=== PATIENT | female | born 1975 | race African-American/Black ===

== ENCOUNTER → 2017-12-23 | Outpatient (CLI) | payer OTHER ==
--- NOTE | 2017-12-23 13:17 | US ---
EXAMINATION TYPE: US venous doppler duplex LE DATE OF EXAM: 12/23/2017 12:29 PM COMPARISON: NONE CLINICAL HISTORY: M79.662, Pain in left lower R22.42, Localized swel. Bilateral leg tenderness. No s welling. No hx of blood clot. SIDE PERFORMED: Bilateral TECHNIQUE: The lower extremity deep venous system is examined utilizing real time linear array sonog tamika with graded compression, doppler sonography and color-flow sonography. VESSELS IMAGED: External Iliac Vein (EIV) Common Femoral Vein Deep Femoral Vein Greater Saphenous Vein * Femoral Vein Popliteal Vein Small Saphenous Vein * Proximal Calf Veins (* superficial vessels) Limited exam due to patient body habitus Grayscale, color doppler, spectral doppler imaging performed of the deep veins of the lower extremiti es. There is normal flow, compressibility, vascular waveforms. IMPRESSION: Right Leg: Appears negative for acute DVT Left Leg: Appears negative for acute DVT
== END | disposition home or self-care (01) ==
LOC: RADUSWWP 11:45
PROVIDERS: ATTEND Internal Medicine
DX: M79.662 Pain in left lower leg (principal); M79.661 Pain in right lower leg; R22.43 Localized swelling, mass and lump, lower limb, bilateral
CPT/HCPCS: 93970

== ENCOUNTER → 2018-03-03 | Outpatient (CLI) | payer OTHER ==
--- NOTE | 2018-03-03 20:36 | WWHP ---
[facility] - HISTORY AND PHYSICAL CHIEF COMPLAINT: The patient is here for her routine gynecologic exam. HPI: This is a 42-year-old, G2, P2, with an LMP of 2013. She is status post KEYANNA for benign reasons. The patient is without gynecologic complaints. It has been about 1 year since her last pelvic exam. PAST MEDICAL HISTORY: Hypothyroidism, chronic hypertension, asthma, and gastroesophageal reflux disease. MEDICATIONS: Levothyroxine 50 mcg daily, atorvastatin 20 mg daily, pantoprazole 40 mg 1 daily, sertraline 50 mg 1 daily. Dicyclomine 20 mg 1 tablet q.i.d., montelukast 10 mg 1 daily, gabapentin 100 mg 1 b.i.d., amlodipine 5 mg 1 daily, potassium chloride 10 mEq 1 b.i.d., Trokendi XR 100 mg once daily, spironolactone 25 mg 1 daily, Jet 10/325 one q.i.d. p.r.n., sucralfate 1 g q.i.d., Dulera 100 mcg/5 mcg 1 puff b.i.d., albuterol nebulizer q.i.d. p.r.n., Ventolin inhaler 2 puffs q.6 hours p.r.n. ALLERGIES: To PENICILLIN, CIPRO AND VANCOMYCIN all of which cause rashes. PAST SURGICAL HISTORY: Endometrial ablation 2013, KEYANNA 2013, back surgery 2012, cholecystectomy 2007 and skin abscess debridement. PAST [employer] HISTORY: She had a KEYANNA in 2013 for endometriosis and abnormal bleeding and uterine fibroids. She has no history of STDs. SOCIAL HISTORY: She denies tobacco, alcohol, and drug use. She has been since 2004 and is currently unemployed. FAMILY HISTORY: Father had colorectal cancer. Mother had diabetes. Brother and sister also had diabetes. Maternal grandmother had breast cancer. REVIEW OF SYSTEMS: She states she has gained nearly 50 pounds over the last year and attributes this to decreased activity because of back problems. RESPIRATORY: Occasional asthma. She denies cardiac or GI problems. : She does have occasional slight urinary leakage and this can be with coughing, but also there are times when she has some urinary urgency that will lead to leakage if she does not get to the bathroom right away. She denies urinary tract infection symptoms such as dysuria or urinary frequency. PHYSICAL EXAM: Blood pressure 130/80, height 5 feet 9 inches, weight 390 pounds, temperature 96.9, pulse 79. This is a well-developed, obese black female who is alert and oriented x3, in no acute distress. HEENT is within normal limits. NECK: Supple without mass or thyromegaly. CHEST AND LUNGS: Clear to auscultation. HEART: Regular rate and rhythm. Breasts are without mass or discharge. Axillary exam is negative for adenopathy. Back negative for CVA tenderness. ABDOMEN: Obese, soft, nontender, without palpable masses. PELVIC EXAM: External genitalia appears normal without significant atrophy. Vagina appears normal without significant atrophy. There is no evidence of prolapse. With Valsalva, there is no significant cystocele and no urinary leakage is demonstrated with cough or Valsalva. Bimanual exam is negative for mass or tenderness. Rectal exam is negative for mass or tenderness and is negative for occult blood. Extremities nontender. IMPRESSION: 1. A 42-year-old female status post KEYANNA for benign reasons with normal gynecologic exam. 2. Mild urinary incontinence, which seems to be of the mixed variety without any significant physical findings at this time. PLAN: 1. Pap smears have been discontinued. 2. Self breast awareness was discussed. 3. We have discussed Kegel exercises and instructions were given to the patient on this. If she continues to have urinary issues, we can consider referral for this. 4. Mammogram was recently done in December of 2017 at [facility] and this was benign according to the patient. I have recommended that she repeat this in 1 year. 5. She will return in 1 year. MMODL / IJN: [id number] /
== END ==
LOC: WWCWWP 14:21
PROVIDERS: ATTEND Obstetrics & Gynecology
DX: Z01.419 Encounter for gynecological examination (general) (routine) without abnormal findings (principal); E03.9 Hypothyroidism, unspecified; I10 Essential (primary) hypertension; J45.909 Unspecified asthma, uncomplicated; K21.9 Gastro-esophageal reflux disease without esophagitis; R32 Unspecified urinary incontinence; Z83.3 Family history of diabetes mellitus; Z88.0 Allergy status to penicillin; Z88.1 Allergy status to other antibiotic agents

== ENCOUNTER 2019-07-14 07:58 | Day surgery (SDC) | payer OTHER ==
[2019-07-12 09:59] VITALS: BMI 65.0
--- NOTE | 2019-07-14 05:11 | P.GSHP ---
History of Present Illness H&P Date: 07/14/19 CHIEF COMPLAINT: GERD HISTORY OF PRESENT ILLNESS: The patient is a 43-year-old female who presents reports gastroesophageal reflux disease. Upper endoscopy was offered for further evaluation and management. PAST MEDICAL HISTORY: Please see list. PAST SURGICAL HISTORY: Please see list. MEDICATIONS: Please see list. ALLERGIES: Please see list. SOCIAL HISTORY: No illicit drug use FAMILY HISTORY: No reports of Crohn disease or ulcerative colitis. REVIEW OF ORGAN SYSTEMS: CONSTITUTIONAL: No reports of fevers or chills. GI: Denies any blood in stools or constipation. PHYSICAL EXAM: VITAL SIGNS: Stable GENERAL: Well-developed and pleasant in no acute distress. HEENT: No scleral icterus. Extraocular movements grossly intact. Moist buccal mucosa. NECK: Supple without lymphadenopathy. CHEST: Unlabored respirations. Equal bilateral excursions. CARDIOVASCULAR: Regular rate and rhythm. Distal 2+ pulses. ABDOMEN: Soft, nondistended. MUSCULOSKELETAL: No clubbing, cyanosis, or edema. ASSESSMENT: 1. Gastroesophageal reflux disease PLAN: 1. Recommend proceeding with an upper endoscopy Past Medical History Past Medical History: Asthma, GERD/Reflux, Hearing Disorder / Deafness, Hypertension, Sleep Apnea/CPAP/BIPAP, Thyroid Disorder Additional Past Medical History / Comment(s): hx. migraines,[employer]. [employer] MACHINE History of Any Multi-Drug Resistant Organisms: None Reported Past Surgical History: Back Surgery, Cholecystectomy, Hysterectomy, Uterine Ablation Additional Past Surgical History / Comment(s): debridement of abdominal wound 2009. Endometrial ablation Past Anesthesia/Blood Transfusion Reactions: No Reported Reaction Smoking Status: Never smoker - Past Family History Mother Family Medical History: Diabetes Mellitus Additional Family Medical History / Comment(s): Maternal grandmother had breast cancer. Sister(s) Family Medical History: Diabetes Mellitus Father Family Medical History: Cancer Additional Family Medical History / Comment(s): COLON CANCER Medications and Allergies Home Medications Medication Instructions Recorded Confirmed Type Albuterol Inhaler [Ventolin Hfa 1 - 2 puff INHALATION Q6HR PRN 03/01/15 07/12/19 History Inhaler] HYDROcodone/APAP 10-325MG [[place] 1 each PO Q6H PRN 03/01/15 07/12/19 History 10-325] Levothyroxine Sodium [Synthroid] 75 mcg PO DAILY 03/01/15 07/12/19 History Topiramate [Topamax] 125 mg PO BID 03/01/15 07/12/19 History amLODIPine [Norvasc] 10 mg PO HS 03/01/15 07/12/19 History Ibuprofen [Motrin] 600 mg PO Q6HR PRN #30 tab 09/01/15 07/12/19 Rx Atorvastatin [Lipitor] 20 mg PO HS 07/12/19 07/12/19 History Cholecalciferol [Vitamin D3 (25 5,000 unit PO DAILY 07/12/19 07/12/19 History Mcg = 1000 Iu)] Dicyclomine [Bentyl] 20 mg PO QID 07/12/19 07/12/19 History Gabapentin [Neurontin] 300 mg PO BID 07/12/19 07/12/19 History Ipratropium-Albuterol Nebulize 3 ml INHALATION TID 07/12/19 07/12/19 History [Duoneb 0.5 mg-3 mg/3 ml Soln] Montelukast [Singulair] 10 mg PO HS 07/12/19 07/12/19 History Pantoprazole [Protonix] 40 mg PO DAILY 07/12/19 07/12/19 History Spironolactone [Aldactone] 25 mg PO DAILY 07/12/19 07/12/19 History Allergies Allergy/AdvReac Type Severity Reaction Status Date / Time ciprofloxacin [From Cipro] Allergy Rash/Hives Verified 07/12/19 09:28 ciprofloxacin HCl Allergy Rash/Hives Verified 07/12/19 09:28 [From Cipro] Penicillins Allergy Rash/Hives Verified 07/12/19 09:28 vancomycin Allergy Rash/Hives Verified 07/12/19 09:28
[~2019-07-14 07:58] MED LIST: LACTATED RINGERS 1,000 ML IV SCH; LIDOCAINE 1% 20 ML VIAL (10MG/ML) FOR IV START INTRADERMA PRN
[2019-07-14 08:34] VITALS: TEMP 98
[2019-07-14] MEDS ORDERED: LIDOCAINE 1% INJ 10MG/ML (20 ML MDV) ONE (08:51)
[2019-07-14] MEDS ORDERED: PROPOFOL 10 MG/ML 20 ML VIAL IV ONE (08:51)
--- NOTE | 2019-07-14 09:09 | P.PCN ---
Date of Procedure: 07/14/19 Description of Procedure: PREOPERATIVE DIAGNOSIS: Gastroesophageal reflux disease. Morbid obesity. POSTOPERATIVE DIAGNOSIS: Morbid obesity. Gastritis. Gastroesophageal reflux disease. OPERATION: Esophagogastroduodenoscopy with biopsies along antrum. SURGEON: Silvia Acuna MD ANESTHESIA: MAC. INDICATIONS: The patient is a 43-year-old female who presents with a history of reflux disease. Benefits and risks of the procedure were described. Informed consent was obtained. DESCRIPTION: The patient was brought into the endoscopy suite and laid in the left lateral decubitus position. An Olympus gastroscope was passed along the posterior oropharynx down to the distal esophagus where the squamocolumnar junction was encountered at 37 cm from the incisors. The stomach was entered and no bile reflux was found. Additional findings are listed below. Biopsies with cold forceps were obtained of the antrum. The first through third portion of the duodenum was examined and unremarkable. Retroflexion of the scope confirmed Hill grade 2 lower esophageal valve. The squamocolumnar junction demonstrated LA grade A erosive esophagitis. The stomach was desufflated. The patient tolerated the procedure well. FINDINGS: Squamocolumnar junction 37 cm from the incisors. Diaphragmatic hiatus at 37 cm. Hill grade 2 lower esophageal valve. LA grade A erosive esophagitis. No active duodenitis. Chronic gastritis with recent bleed RECOMMENDATIONS: Upper endoscopy as needed. Plan - Discharge Summary Discharge Rx Participant: No New Discharge Prescriptions: No Action HYDROcodone/APAP 10-325MG [[place] 10-325] 1 each PO Q6H PRN PRN Reason: Pain Topiramate [Topamax] 125 mg PO BID Levothyroxine Sodium [Synthroid] 75 mcg PO DAILY amLODIPine [Norvasc] 10 mg PO HS Albuterol Inhaler [Ventolin Hfa Inhaler] 1 - 2 puff INHALATION Q6HR PRN PRN Reason: asthma Ibuprofen [Motrin] 600 mg PO Q6HR PRN #30 tab PRN Reason: Pain Pantoprazole [Protonix] 40 mg PO DAILY Dicyclomine [Bentyl] 20 mg PO QID Atorvastatin [Lipitor] 20 mg PO HS Spironolactone [Aldactone] 25 mg PO DAILY Cholecalciferol [Vitamin D3 (25 Mcg = 1000 Iu)] 5,000 unit PO DAILY Montelukast [Singulair] 10 mg PO HS Ipratropium-Albuterol Nebulize [Duoneb 0.5 mg-3 mg/3 ml Soln] 3 ml INHALATION TID Gabapentin [Neurontin] 300 mg PO BID Discharge Medication List Albuterol Inhaler [Ventolin Hfa Inhaler] 1 - 2 puff INHALATION Q6HR PRN 03/01/15 [History] HYDROcodone/APAP 10-325MG [[place] 10-325] 1 each PO Q6H PRN 03/01/15 [History] Levothyroxine Sodium [Synthroid] 75 mcg PO DAILY 03/01/15 [History] Topiramate [Topamax] 125 mg PO BID 03/01/15 [History] amLODIPine [Norvasc] 10 mg PO HS 03/01/15 [History] Ibuprofen [Motrin] 600 mg PO Q6HR PRN #30 tab 09/01/15 [Rx] Atorvastatin [Lipitor] 20 mg PO HS 07/12/19 [History] Cholecalciferol [Vitamin D3 (25 Mcg = 1000 Iu)] 5,000 unit PO DAILY 07/12/19 [History] Dicyclomine [Bentyl] 20 mg PO QID 07/12/19 [History] Gabapentin [Neurontin] 300 mg PO BID 07/12/19 [History] Ipratropium-Albuterol Nebulize [Duoneb 0.5 mg-3 mg/3 ml Soln] 3 ml INHALATION TID 07/12/19 [History] Montelukast [Singulair] 10 mg PO HS 07/12/19 [History] Pantoprazole [Protonix] 40 mg PO DAILY 07/12/19 [History] Spironolactone [Aldactone] 25 mg PO DAILY 07/12/19 [History] [facility]Ref[facility] [place] [facility] Patient Instructions/Handouts: Gastritis (DC) Discharge Disposition: HOME SELF-CARE
[2019-07-14 09:33] VITALS: BP 139/69; PULSE 94; RESP 17
== END 2019-07-14 09:58 | disposition home or self-care (01) ==
LOC: ORWHC2ENDO 07:58
PROVIDERS: ATTEND Surgery Plastic and Reconstructive Surgery
DX: K29.51 Unspecified chronic gastritis with bleeding (principal); K21.9 Gastro-esophageal reflux disease without esophagitis; K22.10 Ulcer of esophagus without bleeding; E66.01 Morbid (severe) obesity due to excess calories; Z68.44 Body mass index [BMI] 60.0-69.9, adult; J45.909 Unspecified asthma, uncomplicated; H91.90 Unspecified hearing loss, unspecified ear; I10 Essential (primary) hypertension; G47.33 Obstructive sleep apnea (adult) (pediatric); Z99.89 Dependence on other enabling machines and devices; E07.9 Disorder of thyroid, unspecified; E78.5 Hyperlipidemia, unspecified; G43.909 Migraine, unspecified, not intractable, without status migrainosus; Z83.3 Family history of diabetes mellitus; Z80.3 Family history of malignant neoplasm of breast; Z80.0 Family history of malignant neoplasm of digestive organs; Z79.890 Hormone replacement therapy; Z79.899 Other long term (current) drug therapy; Z88.1 Allergy status to other antibiotic agents; Z88.0 Allergy status to penicillin
CPT/HCPCS: 88305; 43239; J2001; J2704

== ENCOUNTER → 2019-07-28 | Outpatient (CLI) | payer OTHER ==
--- NOTE | 2019-07-28 15:30 | P.HPBAR ---
Bariatric H&P - History & Physicial H&P Date: 07/28/19 History & Physicial: Visit/CC: Patient initial contact: Initial weight: Initial weight in pounds: Height: Initial BMI: Last weight: Current weight: Current weight in pounds: Current BMI: [place] body weight (based on NIH guidelines): Excess body weight loss: The patient is a 43 year-old F who presents for Bariatric Assessment. She comes in with severe back pain requiring previous back surgery. She has troubles walking. She had physical therapy. Her highest weight is 445 pounds. Insurance guideline reviewed. Food and exercise journal reveiwed. She is looking into a sleeve. [facility] labs. Past Medical History Past Medical History: Asthma, GERD/Reflux, Hearing Disorder / Deafness, Hypertension, Sleep Apnea/CPAP/BIPAP, Thyroid Disorder Additional Past Medical History / Comment(s): hx. 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 Endometrial ablation Past Anesthesia/Blood Transfusion Reactions: No Reported Reaction Smoking Status: Never smoker - Past Family History Mother Family Medical History: Diabetes Mellitus Additional Family Medical History / Comment(s): Maternal grandmother had breast cancer. Sister(s) Family Medical History: Diabetes Mellitus Father Family Medical History: Cancer Additional Family Medical History / Comment(s): COLON CANCER Bariatric Checklist Checklist: Plan: Checklist: EGD: 1. Hiatal hernia: 2. H. Pylori: HgbA1c: Vitamin D: Smoking: Never smoker Primary care physician referral: Psychiatry clearance: Cardiology clearance: Sleep study: Diet journal: VTE risk score: VTE risk level: Rehab needs at discharge:
[2019-07-28 15:39] VITALS: BP 131/81; PULSE 91; RESP 16; TEMP 97.9; BMI 65.7
== END | disposition home or self-care (01) ==
LOC: BARWHC3 14:06
PROVIDERS: ATTEND Surgery Plastic and Reconstructive Surgery
DX: Z48.815 Encounter for surgical aftercare following surgery on the digestive system (principal); M54.9 Dorsalgia, unspecified; Z90.49 Acquired absence of other specified parts of digestive tract
CPT/HCPCS: 99211